=== PATIENT | female | born 1955 | race African-American/Black ===

== ENCOUNTER 2023-10-15 12:49 | Emergency (ER) | payer OTHER, SELFPAY ==
--- NOTE | ~2023-10-15 | XR_ITS ---
EXAMINATION: XR foot LT min 3V DATE: 10/15/2023 13:12 INDICATION: Smashing injury across the metatarsal of the left foot TECHNIQUE: Dorsoplantar, two oblique and lateral views of the left foot were obtained. COMPARISON: None. FINDINGS: 25 degrees hallux valgus. Suggestion of pes planus however assessment is limited on nonweightbearing imaging. Nondisplaced fracture extending across the diaphysis of the fourth proximal phalanx. No othe r fractures identified. 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 Small Achilles and plantar calcaneal spurs. IMPRESSION: 1. Nondisplaced diaphyseal fracture at the left fourth proximal phalanx. Reviewed, dictated and finalized at location A.
[2023-10-15 12:57] VITALS: BP 127/53; PULSE 78; RESP 20; TEMP 36.1; O2SAT 100
--- NOTE | 2023-10-15 14:10 | ED.GENADULT ---
HPI - General Adult General Chief complaint: Extremity Injury, Lower Stated complaint: foot injury Time Seen by Provider: 10/15/23 13:41 History of Present Illness HPI narrative: 68-year-old female presents emergency department for evaluation for an injury to her left foot. Patient was attempting to get some dishes off a high shelf when they both fell and landed on her foot. Patient describes pain in the 4th and 5th toes of the left foot. Patient denies any pain or injury. Related Data Allergies Allergy/AdvReac Type Severity Reaction Status Date / Time No Known Allergies Allergy Verified 10/15/23 12:59 Review of Systems Review of Systems: All systems reviewed & are unremarkable except as noted in HPI and below Exam Narrative: APPEARANCE: Well appearing, no pain, no distress, well-nourished. HEAD: normocephalic, atraumatic. EYES: PERRLA/EOMI, conjunctivae clear. NOSE: Normal no drainage EARS:TMS clear with good light reflex. THROAT: Pharynx clear, no exudate. NECK: Supple. No adenopathy, no masses. RESPIRATORY: Airway patent, respirations nonlabored. Clear to auscultation bilaterally, no rales, rhonchi, wheezing. CARDIOVASCULAR: Regular rate and rhythm without murmurs rubs or gallops. ABDOMINAL: Soft, nontender, nondistended, normal bowel sounds MUSCULOSKELETAL: Tenderness to 4th of the toes of left NEURO: Alert. Cranial nerves II through XII intact. Good gait. Good coordination SKIN: Warm, dry. Normal Color PSYCHIATRIC: Normal affect/mood. Course Course Emergency Course: Patient was diagnosed with a fractured 4th toe, the toe was edilma-taped and patient was provided a hard sole shoe. Vital Signs Vital signs: Vital Signs Temperature 97.0 F L 10/15/23 12:57 Pulse Rate 78 10/15/23 12:57 Respiratory Rate 20 10/15/23 12:57 Blood Pressure 127/53 L 10/15/23 12:57 Pulse Oximetry 100 10/15/23 12:57 Oxygen Delivery Room Air 10/15/23 12:57 Temperature 97.0 F L 10/15/23 12:57 Pulse Rate 78 10/15/23 12:57 Respiratory Rate 20 10/15/23 12:57 Blood Pressure 127/53 L 10/15/23 12:57 Pulse Oximetry 100 10/15/23 12:57 Oxygen Delivery Room Air 10/15/23 12:57 Medical Decision Making MDM Narrative Medical decision making narrative: 68-year-old female presents emergency department for evaluation for injury to her left foot. X-ray does show a fracture the proximal phalanx of the 4th toe. Patient was placed in a hard sole shoe and edilma taped. Patient was encouraged of close follow-up with Podiatry or Orthopedics. Differential Diagnosis Differential Diagnosis: Toe fracture, toe contusion Vital Signs Vital Signs: Vital Signs Temperature 97.0 F L 10/15/23 12:57 Pulse Rate 78 10/15/23 12:57 Respiratory Rate 20 10/15/23 12:57 Blood Pressure 127/53 L 10/15/23 12:57 Pulse Oximetry 100 10/15/23 12:57 Oxygen Delivery Room Air 10/15/23 12:57 Temperature 97.0 F L 10/15/23 12:57 Pulse Rate 78 10/15/23 12:57 Respiratory Rate 20 10/15/23 12:57 Blood Pressure 127/53 L 10/15/23 12:57 Pulse Oximetry 100 10/15/23 12:57 Oxygen Delivery Room Air 10/15/23 12:57 Imaging Data Radiologist's impression: Impressions Foot X-Ray 10/15/23 13:20 IMPRESSION: 1. Nondisplaced diaphyseal fracture at the left fourth proximal phalanx. Discharge Plan Discharge Clinical Impression: Fracture of toe Patient Disposition: Home, Self-Care Condition: Stable Instructions: Antibiotic Form, Toe Fracture (ED) Additional Instructions: Hard sole shoe as directed. Edilma-tape the affected toe as directed. Have close follow-up with Podiatry or Orthopedics. If you have any worsening symptoms please call or return to the emergency department. Follow-up/Referrals: Carl Mclaughlin MD [Physician] - Loi Taylor Jr., DPM [Physician] - PHYSICIAN,CABLE FORMER [Primary Care Provider] - Stand Alone Forms: Work/School Release IP
== END 2023-10-15 14:31 | disposition home or self-care (01) ==
PROVIDERS: Emergency Provider Emergency Medicine; Referring Provider Emergency Medicine
DX: S92.515A Nondisplaced fracture of proximal phalanx of left lesser toe(s), initial encounter for closed fracture (principal); W20.8XXA Other cause of strike by thrown, projected or falling object, initial encounter
CPT/HCPCS: 73630; 99284

== ENCOUNTER 2024-04-15 14:30 | Outpatient (CLI) | payer OTHER, SELFPAY ==
[2024-04-15 15:10] LABS: Alanine Aminotransferase 19 U/L (6-35); Aspartate Amino Transferase 58 U/L (14-36)
== END 2024-04-15 14:31 | disposition home or self-care (01) ==
LOC: ANHLAB 14:34
PROVIDERS: Visit Provider Podiatrist Foot & Ankle Surgery
DX: B35.1 Tinea unguium (principal)
CPT/HCPCS: 36415; 84450; 84460